=== PATIENT | female | born 1990 | race Caucasian/White ===

== ENCOUNTER 2022-06-08 20:13 | Emergency (ER) | payer MEDICAID, OTHER ==
[~2022-06-08] VITALS: Ht 167.6 cm; Wt 93.0 kg
--- NOTE | 2022-06-08 20:15 | NUR ---
[id number] from home, slip and fall from stairs, possible L knee dislocation given fentanyl 50mcg [id number].
[2022-06-08] MEDS ORDERED: PROPOFOL 20 ML IV ONE (20:27)
[2022-06-08] MEDS ORDERED: ONDANSETRON HCL/PF 4 MG/2 ML VIAL ONE (20:27)
[2022-06-08] MEDS ORDERED: ONDANSETRON HCL/PF 4 MG/2 ML VIAL IVP ONE (20:30)
[2022-06-08] MEDS ORDERED: IV NS 0.9% 1,000 ML BAG IV ONE (20:30)
[2022-06-08] MEDS ORDERED: HYDROMORPHONE INJ 2 MG/ML DISP.SYRIN IV ONE (20:30)
[2022-06-08] MEDS ORDERED: PROPOFOL 200 MG/20 ML VIAL IV ONE (20:30)
--- NOTE | 2022-06-08 20:36 | NUR ---
WRAPPER SELECTOR AT PT'S BEDSIDE
--- NOTE | 2022-06-08 20:40 | NUR ---
CLOSE REDUCTION OF DISLOCATED L KNEE DONE BY DR WHITLEY WITH DIPRIVAN 100MG IV.
--- NOTE | 2022-06-08 20:45 | NUR ---
X-RAY TECH AT BEDSIDE FOR POST REDUCTION OF L KNEE.
--- NOTE | 2022-06-08 21:16 | NUR ---
PATIENT TAKEN TO CT VIA CLARISSE
[2022-06-08] MEDS ORDERED: HYDR-3972 PO (22:05)
[2022-06-08] MEDS ORDERED: IBUP-1953 PO (22:05)
--- NOTE | 2022-06-08 22:50 | NUR ---
IV removed. Catheter intact and site benign. Pressure and 4x4 applied to site. No bleeding noted.Patient discharged to home in stable condition. Written and verbal after care instructions given. Patient verbalizes understanding of instruction.
[2022-06-08 23:03] VITALS: BP 125/80
== END 2022-06-08 22:50 | disposition home or self-care (01) ==
LOC: ER 20:15
DX: S82.002A Unspecified fracture of left patella, initial encounter for closed fracture (principal); S63.501A Unspecified sprain of right wrist, initial encounter; W10.9XXA Fall (on) (from) unspecified stairs and steps, initial encounter; Y93.89 Activity, other specified; Y92.89 Other specified places as the place of occurrence of the external cause; Y99.8 Other external cause status
CPT/HCPCS: 99285; 27560; 96374; 73700; 96361; 29125; 99152; 73564; 73560; 73110; J2704; J2405; J7030; A4223; G0500

== ENCOUNTER 2024-10-14 03:52 | Emergency (ER) | payer MEDICAID, OTHER ==
[~2024-10-14] VITALS: Ht 167.6 cm; Wt 81.6 kg
[~2024-10-14 03:52] MED LIST: HYDR-3972 PO; IBUP-1953 PO
[2024-10-14] MEDS ORDERED: NAPROXEN 250 MG TABLET ONE (04:12)
[2024-10-14] MEDS ORDERED: ACETAMINOPHEN ES 500 MG TABLET ONE (04:13)
[2024-10-14] MEDS: NAPROXEN 250 MG TABLET PO ONE (04:20)
[2024-10-14] MEDS: ACETAMINOPHEN ES 500 MG TABLET PO ONE (04:21)
[2024-10-14] MEDS ORDERED: ACET-3102 PO (04:26)
[2024-10-14] MEDS ORDERED: NAPR-1009 PO (04:26)
[2024-10-14 04:41] VITALS: BP 135/85; TEMP 98.6; O2SAT 96
== END 2024-10-14 04:42 | disposition home or self-care (01) ==
LOC: ER 03:59
DX: S90.112A Contusion of left great toe without damage to nail, initial encounter (principal); M79.672 Pain in left foot; W20.8XXA Other cause of strike by thrown, projected or falling object, initial encounter; Y93.89 Activity, other specified; Y92.89 Other specified places as the place of occurrence of the external cause; Y99.8 Other external cause status
CPT/HCPCS: 73630-TC